=== PATIENT | male | born 1970 | race Caucasian/White ===

== ENCOUNTER 2022-07-22 09:46 | Emergency (ER) | payer BC ==
[2022-07-22 09:53] VITALS: BP 164/63; PULSE 75; RESP 18; TEMP 98
--- NOTE | 2022-07-22 10:12 | ED ---
Back Pain HPI - General Chief Complaint: Back Pain/Injury Stated Complaint: Back & hip pain Time Seen by Provider: 07/22/22 10:00 Source: patient, RN notes reviewed Limitations: physical limitation - History of Present Illness Initial Comments: Patient is a 51-year-old male presenting to the emergency room with severe right-sided back pain radiating into his hip and down to the groin. He reports the pain started , 3 days ago. 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 He did continue to work the next 2 days despite having pain which has continued to worsen. He reports pain range of motion impairment due to severe pain. He denies any weakness, numbness or tingling. He has taken ibuprofen without any response. He does note a history of chronic back pain/problems but typically he manages this well without any medication. He denies any trauma or known injury on the day symptoms began. He has no other significant past medical history. - Related Data Previous Rx's Medication Instructions Recorded HYDROcodone/APAP 5-325MG [[place] 1 tab PO Q4HR PRN 3 Days #18 tab 07/22/22 5-325] methylPREDNISolone Dose Pack 4 mg PO DIRECTED #21 tab 07/22/22 [Medrol Dose Pack] Allergies Allergy/AdvReac Type Severity Reaction Status Date / Time No Known Allergies Allergy Verified 07/22/22 09:53 Review of Systems ROS Statement: Those systems with pertinent positive or pertinent negative responses have been documented in the HPI. ROS Other: All systems not noted in ROS Statement are negative. Past Medical History Additional Past Medical History / Comment(s): chronic back pain, History of Any Multi-Drug Resistant Organisms: None Reported Past Surgical History: No Surgical Hx Reported Past Psychological History: No Psychological Hx Reported Smoking Status: Current every day smoker Past Alcohol Use History: Occasional Past Drug Use History: Marijuana General Exam Limitations: physical limitation General appearance: alert, in no apparent distress Head exam: Present: atraumatic, normocephalic, normal inspection Eye exam: Present: normal appearance, PERRL, EOMI. Absent: scleral icterus, conjunctival injection, periorbital swelling ENT exam: Present: normal exam, mucous membranes moist Neck exam: Present: normal inspection, full ROM Respiratory exam: Absent: respiratory distress, accessory muscle use Cardiovascular Exam: Present: regular rate GI/Abdominal exam: Absent: distended, tenderness Right Hip exam: Present: tenderness. Absent: full ROM (Limited by pain), swelling, abrasion, laceration, ecchymosis, deformity, crepitus, dislocation, erythema, external rotation, internal rotation, shortening, pelvic stability Neurovascular tendon exam: Present: no vascular compromise Gait: observed and limited by pain Back exam: Present: tenderness (Right mid lower back into buttocks generalized no point tenderness). Absent: vertebral tenderness Neurological exam: Present: alert, oriented X3, CN II-XII intact Psychiatric exam: Present: normal affect, normal mood Skin exam: Present: warm, dry, intact, normal color. Absent: rash Course Vital Signs 07/22/22 09:50 Temperature 98.0 F Pulse Rate 75 Respiratory 18 Rate Blood Pressure 164/63 O2 Sat by Pulse 100 Oximetry Medical Decision Making - Medical Decision Making Was pt. sent in by a medical professional or institution (, PA, [facility], urgent care, hospital, or usp...) When possible be specific @ -No Did you speak to anyone other than the patient for history (EMS, parent, family, police, friend...)? What history was obtained from this source @ -No Did you review nursing and triage notes (agree or disagree)? Why? @ -I reviewed and agree with nursing and triage notes Were old charts reviewed (outside hosp., previous admission, EMS record, old EKG, old radiological studies, urgent care reports/EKG's, usp records)? Report findings @ -No old charts were reviewed Differential Diagnosis (chest pain, altered mental status, abdominal pain women, abdominal pain men, vaginal bleeding, weakness, fever, dyspnea, syncope, headache, dizziness, GI bleed, back pain, seizure, CVA, palpatations, mental health, musculoskeletal)? @ -Differential Back Pain: Strain, zoster, cauda equina syndrome, epidural abscess, vertebral osteomyelitis, discitis, fracture, subluxation, disc herniation, DJD, spinal stenosis, dissection, AAA, pancreatitis, peptic ulcer disease, pyelonephritis, kidney stone, this is not meant to be an all-inclusive list. EKG interpreted by me (3pts min.). @ -None done X-rays interpreted by me (1pt min.). @ -X-ray right hip: Joint space well maintained no fracture or dislocation. X-ray lumbar spine degenerative disc disease no vertebral collapse or fracture. CT interpreted by me (1pt min.). @ -None done U/S interpreted by me (1pt. min.). @ -None done What testing was considered but not performed or refused? (CT, X-rays, U/S, labs)? Why? @ -None What meds were considered but not given or refused? Why? @ -None Did you discuss the management of the patient with other professionals (professionals i.e. , PA, [facility], lab, RT, psych nurse, director of social work, electroplater helper, teacher, campus police officer, case managers)? Give summary @ -No Was smoking cessation discussed for >3mins.? @ -No Was critical care preformed (if so, how long)? @ -No Were there social determinants of health that impacted care today? How? (Homelessness, low income, unemployed, alcoholism, drug addiction, transportation, low edu. Level, literacy, decrease access to med. care, [facility], rehab)? @ -No Was there de-escalation of care discussed even if they declined (Discuss DNR or withdrawal of care, Hospice)? DNR status @ -No What co-morbidities impacted this encounter? (DM, HTN, Smoking, COPD, CAD, Cancer, CVA, ARF, Chemo, Hep., AIDS, mental health diagnosis, sleep apnea, morbid obesity)? @ -None Was patient admitted / discharged? Hospital course, mention meds given and route, prescriptions, significant lab abnormalities, going to OR and other pertinent info. @ -51-year-old male presenting to the emergency room with severe right-sided back pain radiating into his hip and down to the groin. Symptoms consistent with sacroiliitis and chronic lower back pain flare however patient is concerned regarding injury as his hip is "popping". Will obtain x-rays of lumbar spine and right hip. Will give Toradol and Norflex for pain and monitor response. X-ray of right hip without any acute osseous pathology. X-ray of the lumbar spine demonstrates known degenerative disc disease no acute findings. Pain persists after Norflex and Toradol will give IM morphine. Pain continued after morphine but improved. Discussed options of admission for pain control versus home with [place] and Medrol Dosepak. Patient would like to be discharged home. Will give dose of Solu-Medrol now and advised patient to start Medrol Dosepak tomorrow morning. Advised no NSAIDs while taking steroids. Advised will prescribe medications and discharge home but with strict return parameters to the emergency room if symptoms worsen. Advised rest and ice useQuestions significant concerns answered. Will discharge home in stable condition on Medrol Dosepak along with [place] 3 day course to utilize as needed for pain for sacroiliitis. Undiagnosed new problem with uncertain prognosis? @ -No Drug Therapy requiring intensive monitoring for toxicity (Heparin, Nitro, Insulin, Cardizem)? @ -No Were any procedures done? @ -No Diagnosis/symptom? @ -Sacroiliitis Acute, or Chronic, or Acute on Chronic? @ -Acute Uncomplicated (without systemic symptoms) or Complicated (systemic symptoms)? @ -Uncomplicated Side effects of treatment? @ -No Exacerbation, Progression, or Severe Exacerbation? @ -No Poses a threat to life or bodily function? How? (Chest pain, [place], PR, pneumonia, PE, COPD, DKA, ARF, appy, cholecystitis, CVA, Diverticulitis, Homicidal, Suicidal, threat to staff... and all critical care pts) @ -No Case discussed with Dr. Quispe. Disposition Clinical Impression: Sacroiliitis Disposition: HOME SELF-CARE Condition: Stable Instructions (If sedation given, give patient instructions): Sacroiliitis (ED) Additional Instructions: Complete course of steroid Dosepak as prescribed. Use [place] for pain as needed. Range of motion as tolerated encouraged. Applications of heat or ice may help reduce pain. Do not take other NSAIDs while on steroid Dosepak. May resume NSAIDs for pain as needed after completion of Medrol Dosepak. Please follow-up with your primary care provider. Please return to the Emergency Department if symptoms worsen or any other concerns. Prescriptions: methylPREDNISolone Dose Pack [Medrol Dose Pack] 4 mg PO DIRECTED #21 tab HYDROcodone/APAP 5-325MG [[place] 5-325] 1 tab PO Q4HR PRN 3 Days #18 tab PRN Reason: Pain Is patient prescribed a controlled substance at d/c from ED?: Yes When asked, does pt state using other controlled substances?: Yes If prescribed controlled substance>3 days was MAPS reviewed?: Prescribed <3 Days If opioid is for acute pain is fill amount 7 days or less?: Yes Referrals: Selvin Atkins MD [Primary Care Provider] - 1-2 days Time of Disposition: 12:41
[2022-07-22] MEDS ORDERED: KETOROLAC 15 MG/ML 1 ML VIAL IVP STA (10:37)
[2022-07-22] MEDS ORDERED: ORPHENADRINE 30 MG/ML 2 ML VIAL IM STA (10:37)
--- NOTE | 2022-07-22 11:09 | XR ---
EXAMINATION TYPE: XR lumbar spine 3V, XR Hip Complete 2 views RT DATE OF EXAM: 07/22/2022 Comparison: None HISTORY: 51-year-old male with pain Findings: Lumbar spine: 5 lumbar type vertebral bodies. Mild multilevel degenerative disc disease. Facet arthropathy lower gabino mbar spine. Somewhat short appearance to the pedicles of the lower lumbar spine may reflect a compone nt of congenital spinal canal stenosis. Vertebral body heights are preserved and alignment is maintai jimbo. Right hip: Joint space is relatively maintained. No acute fracture, subluxation, or dislocation. Impression: 1. Lumbar spine: Mild multilevel degenerative disc disease. Facet arthropathy lower lumbar spine. Pos sible component of congenital spinal canal stenosis lower lumbar spine. No vertebral compression junior apse or malalignment. 2. Right hip: No acute osseous abnormality seen.
[2022-07-22] MEDS ORDERED: MORPHINE SULFATE 4 MG/ML SYRINGE IM STA (11:28)
[2022-07-22] MEDS ORDERED: methylPREDNISolone SOD SUCCI 125 MG/2 ML VIAL IM ONE (12:25)
== END 2022-07-22 12:59 | disposition home or self-care (01) ==
LOC: EC 09:46
DX: M46.1 Sacroiliitis, not elsewhere classified (principal); F17.200 Nicotine dependence, unspecified, uncomplicated; F12.90 Cannabis use, unspecified, uncomplicated
CPT/HCPCS: 72100; 73502; 99283; 96374; 96372 ×3; J2270; J2360; J2930; J1885

== ENCOUNTER 2022-07-25 08:09 | Observation (INO) | payer BC ==
[2022-07-25] MEDS ORDERED: HYDROmorphone 1 MG/ML 1 ML SYRINGE IVP STA (08:49)
[2022-07-25] MEDS ORDERED: ORPHENADRINE 30 MG/ML 2 ML VIAL IVP STA (08:49)
[2022-07-25] MEDS ORDERED: KETOROLAC 15 MG/ML 1 ML VIAL IVP STA (09:11)
--- NOTE | 2022-07-25 09:19 | ED ---
Back Pain HPI - General Source: patient, RN notes reviewed Limitations: no limitations - History of Present Illness MD Complaint: back pain Onset/Timin -: days(s) Similar Symptoms Previously: Yes <Kathy Hollingsworth - Last Filed: 07/25/22 14:56> <Jasmin Frazier Dionne - Last Filed: 07/29/22 00:28> - General Chief Complaint: Back Pain/Injury Stated Complaint: Back Pain Time Seen by Provider: 07/25/22 08:11 - History of Present Illness Initial Comments: This is a 51-year-old male who presents to the emergency department for lower back pain. Patient was evaluated here 3 days ago for the same complaint. 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 He has struggled with chronic back pain before, however it has never been this severe and always resolves with OTC Ibuprofen and Tylenol and other conservative measures. He was given prescriptions for a Medrol Dosepak and [place], which he states are not helping at all. Also states that the pain medications he received when he was here 3 days ago were not helpful, which included Solu- Medrol, Morphine, Toradol, and Norflex. The pain is in the right side of the back with radiation down the right leg and into the hip. Also reports lower abdominal pain and pain in the testicles. Denies any history of similar symptoms in the past. Denies any loss of bowel/bladder control or saddle anesthesia. However, he has been constipated over the last 3-4 days. Denies any urinary symptoms. Denies any fevers, chills, sore throat, cough, dyspnea, chest pain, palpitations, nausea, vomiting, diarrhea, or headaches. (Kathy Hollingsworth) - Related Data Previous Rx's Medication Instructions Recorded Cyclobenzaprine [Flexeril] 5 mg PO TID PRN #15 tab 07/28/22 Diclofenac Sodium Gel [Voltaren 4 gm TOPICAL QID gm 07/28/22 Gel] Omeprazole [PriLOSEC] 20 mg PO AC-BRKFST #15 cap 07/28/22 oxyCODONE-APAP 7.5-325MG [Percocet 1 each PO Q4HR PRN 4 Days #16 tab 07/28/22 7.5-325 mg] Allergies Allergy/AdvReac Type Severity Reaction Status Date / Time No Known Allergies Allergy Verified 07/25/22 12:35 Review of Systems ROS Other: All systems not noted in ROS Statement are negative. <Kathy Hollingsworth - Last Filed: 07/25/22 14:56> ROS Other: All systems not noted in ROS Statement are negative. <FreddieJasmin Dionne - Last Filed: 07/29/22 00:28> ROS Statement: Those systems with pertinent positive or pertinent negative responses have been documented in the HPI. Past Medical History Additional Past Medical History / Comment(s): chronic back pain, History of Any Multi-Drug Resistant Organisms: None Reported Past Surgical History: No Surgical Hx Reported Past Psychological History: No Psychological Hx Reported Smoking Status: Current every day smoker Past Alcohol Use History: Occasional Past Drug Use History: Marijuana <Kathy Hollingsworth - Last Filed: 07/25/22 14:56> General Exam Limitations: no limitations General appearance: alert, in distress Head exam: Present: atraumatic, normocephalic, normal inspection Respiratory exam: Present: normal lung sounds bilaterally. Absent: respiratory distress, wheezes, rales, rhonchi, stridor Cardiovascular Exam: Present: regular rate, normal rhythm, normal heart sounds. Absent: systolic murmur, diastolic murmur, rubs, gallop, clicks GI/Abdominal exam: Present: soft, tenderness (Lower abdominal). Absent: distended Back exam: Present: normal inspection, tenderness (Right lower back) Neurological exam: Present: alert, oriented X3, CN II-XII intact Psychiatric exam: Present: normal affect, normal mood Skin exam: Present: warm, dry, intact, normal color. Absent: rash <Kathy Hollingsworth - Last Filed: 07/25/22 14:56> Course Vital Signs 07/25/22 07/25/22 07/25/22 08:11 09:00 13:00 Temperature 97.3 F L 98 F Pulse Rate 69 66 67 Pulse Rate [ Right Supine] Respiratory 18 18 18 Rate Blood Pressure 145/83 125/84 154/99 Blood Pressure [Left Arm Supine] O2 Sat by Pulse 98 98 Oximetry 07/25/22 07/25/22 07/25/22 18:37 20:46 20:55 Temperature 97.8 F 97.8 F Pulse Rate 69 Pulse Rate [ 70 Right Supine] Respiratory 18 18 18 Rate Blood Pressure 147/95 Blood Pressure 138/92 [Left Arm Supine] O2 Sat by Pulse 95 96 Oximetry Medical Decision Making - Lab Data Result diagrams: 07/25/22 09:08 07/25/22 09:08 - Radiology Data Radiology results: report reviewed, image reviewed <Kathy Hollingsworth - Last Filed: 07/25/22 14:56> - Lab Data Result diagrams: 07/25/22 09:08 07/28/22 14:34 <Venus Frazierah Dionne - Last Filed: 07/29/22 00:28> - Medical Decision Making This is a 51-year-old male who presents to the emergency department for back pain and abdominal pain. Was pt. sent in by a medical professional or institution? @ -No Did you speak to anyone other than the patient for history? @ -No Did you review nursing and triage notes? @ -Yes, and I agree, it is accurate with regards to the patient's symptoms. Were old charts reviewed? @ -Yes, x-rays of the lumbar spine and right hip from 3 days ago revealing no acute findings. Differential Diagnosis? @ -Differential Back Pain: Strain, zoster, cauda equina syndrome, epidural abscess, vertebral osteomyelitis, discitis, fracture, subluxation, disc herniation, DJD, spinal stenosis, dissection, AAA, pancreatitis, peptic ulcer disease, pyelonephritis, kidney stone, this is not meant to be an all-inclusive list. -Differential Abdominal Pain Men: Appendicitis, cholecystitis, diverticulosis, ischemic bowel, pancreatitis, hepatitis, UTI, gastroenteritis, AAA, incarcerated hernia, bowel obstruction, constipation, inflammatory bowel, hepatitis, peptic ulcer disease, splenic infarction, perforated viscus, testicular torsion, this is not meant to be an all-inclusive list EKG interpreted by me (3pts min.)? @ -Not obtained X-rays interpreted by me (1pt min.)? @ -Not obtained CT interpreted by me (1pt min.)? @ -CT scan of the abdomen and pelvis obtained. My interpretation identifies no evidence of free air or ureteral calculus. U/S interpreted by me (1pt. min.)? @ -Not obtained What testing was considered but not performed? (CT, X-rays, U/S, labs)? Why? @ -None What meds were considered but not given? Why? @ -None Did you discuss the management of the patient with other professionals? @ -Yes, Dr. Banerjee, who accepts the patient for admission. Did you reconcile home meds? @ -No Was smoking cessation discussed for >3mins.? @ -No Was critical care preformed (if so, how long)? @ -No Were there social determinants of health that impacted care today? How? (Homelessness, low income, unemployed, alcoholism, drug addiction, trans portation, low edu. Level, literacy, decrease access to med. care, detention, rehab)? @ -No Was there de-escalation of care discussed even if they declined? (Discuss DNR or withdrawal of care, Hospice)? @ -No What co-morbidities impacted this encounter? (DM, HTN, Smoking, COPD, CAD, Cancer, CVA, Hep., AIDS, mental health diagnosis, sleep apnea, morbid obesity)? @ -Chronic back pain Was patient admitted / discharged? @ -Admitted. Patient was curled up on the stretcher in extreme pain on initial examination. Given the persistence of his symptoms and failed outpatient pain management, further workup including blood work and computed tomography scan of the lumbar spine and abdomen and pelvis was subsequently obtained. Notable findings include severe neural foraminal stenosis with possible abutment at the right L4 nerve root. Additionally, computed tomography scan of the abdomen and pelvis notes gastric thickening and mucosal lesions/neoplasm cannot be excluded. There is also thickening and narrowing at the mid sigmoid colon and a neoplasm cannot be ruled out here either. Direct visualization was recommended. Given the patient's intractable pain with these findings, patient admitted to medicine for intractable back pain. Consult placed for Dr. Pradhan, orthopedics and Dr. Saxena, gastroenterology. Undiagnosed new problem with uncertain prognosis? @ -None Drug Therapy requiring intensive monitoring for toxicity (Heparin, Nitro, Insulin, Cardizem)? @ -None Were any procedures done? @ -None Diagnosis/symptom? @ -Intractable back pain, neural foraminal stenosis Acute, or Chronic, or Acute on Chronic? @ -Acute Uncomplicated (without systemic symptoms) or Complicated (systemic symptoms)? @ -Uncomplicated Side effects of treatment? @ -None Exacerbation, Progression, or Severe Exacerbation] @ -Not applicable Poses a threat to life or bodily function? @ -Yes, the pain is having a large impact on his ability to function. This case was discussed in detail with the attending ED physician, Dr. Farzier. Presentation, findings, and treatment plan discussed in detail as well. (Kathy Hollingsworth) - Lab Data Lab Results 07/25/22 07/25/22 07/25/22 Range/Units 09:08 09:08 09:08 WBC 10.0 (3.8-10.6) k/uL RBC 6.16 H (4.30-5.90) m/uL Hgb 18.7 H (13.0-17.5) gm/dL Hct 53.8 H (39.0-53.0) % MCV 87.3 (80.0-100.0) fL MCH 30.4 (25.0-35.0) pg MCHC 34.9 (31.0-37.0) g/dL RDW 12.8 (11.5-15.5) % Plt Count 232 (150-450) k/uL MPV 8.5 Neutrophils % 73 % Lymphocytes % 21 % Monocytes % 4 % Eosinophils % 1 % Basophils % 0 % Neutrophils # 7.3 (1.3-7.7) k/uL Lymphocytes # 2.1 (1.0-4.8) k/uL Monocytes # 0.4 (0-1.0) k/uL Eosinophils # 0.1 (0-0.7) k/uL Basophils # 0.0 (0-0.2) k/uL Sodium 137 (137-145) mmol/L Potassium 4.3 (3.5-5.1) mmol/L Chloride 106 (98-107) mmol/L Carbon Dioxide 20 L (22-30) mmol/L Anion Gap 11 mmol/L BUN 18 (9-20) mg/dL Creatinine 0.74 (0.66-1.25) mg/dL Est GFR (CKD-EPI)AfAm >90 (>60 ml/min/1.73 sqM) Est GFR (CKD-EPI)NonAf >90 (>60 ml/min/1.73 sqM) Glucose 104 H (74-99) mg/dL Plasma Lactic Acid Wagner (0.7-2.0) mmol/L Calcium 9.7 (8.4-10.2) mg/dL Total Bilirubin 1.9 H (0.2-1.3) mg/dL AST 27 (17-59) U/L ALT 25 (4-49) U/L Alkaline Phosphatase 67 (38-126) U/L Troponin I (0.000-0.034) ng/mL C-Reactive Protein <0.5 (<1.0) mg/dL Total Protein 8.1 (6.3-8.2) g/dL Albumin 4.7 (3.5-5.0) g/dL Urine Color Yellow Urine Appearance Clear (Clear) Urine pH 6.5 (5.0-8.0) Ur Specific [place] 1.046 H (1.001-1.035) Urine Protein Trace H (Negative) Urine Glucose (UA) Negative (Negative) Urine Ketones 1+ H (Negative) Urine Blood Negative (Negative) Urine Nitrite Negative (Negative) Urine Bilirubin Negative (Negative) Urine Urobilinogen <2.0 (<2.0) mg/dL Ur Leukocyte Esterase Negative (Negative) 07/25/22 07/25/22 Range/Units 09:08 09:08 WBC (3.8-10.6) k/uL RBC (4.30-5.90) m/uL Hgb (13.0-17.5) gm/dL Hct (39.0-53.0) % MCV (80.0-100.0) fL MCH (25.0-35.0) pg MCHC (31.0-37.0) g/dL RDW (11.5-15.5) % Plt Count (150-450) k/uL MPV Neutrophils % % Lymphocytes % % Monocytes % % Eosinophils % % Basophils % % Neutrophils # (1.3-7.7) k/uL Lymphocytes # (1.0-4.8) k/uL Monocytes # (0-1.0) k/uL Eosinophils # (0-0.7) k/uL Basophils # (0-0.2) k/uL Sodium (137-145) mmol/L Potassium (3.5-5.1) mmol/L Chloride (98-107) mmol/L Carbon Dioxide (22-30) mmol/L Anion Gap mmol/L BUN (9-20) mg/dL Creatinine (0.66-1.25) mg/dL Est GFR (CKD-EPI)AfAm (>60 ml/min/1.73 sqM) Est GFR (CKD-EPI)NonAf (>60 ml/min/1.73 sqM) Glucose (74-99) mg/dL Plasma Lactic Acid Wagner 1.5 (0.7-2.0) mmol/L Calcium (8.4-10.2) mg/dL Total Bilirubin (0.2-1.3) mg/dL AST (17-59) U/L ALT (4-49) U/L Alkaline Phosphatase (38-126) U/L Troponin I <0.012 (0.000-0.034) ng/mL C-Reactive Protein (<1.0) mg/dL Total Protein (6.3-8.2) g/dL Albumin (3.5-5.0) g/dL Urine Color Urine Appearance (Clear) Urine pH (5.0-8.0) Ur Specific [place] (1.001-1.035) Urine Protein (Negative) Urine Glucose (UA) (Negative) Urine Ketones (Negative) Urine Blood (Negative) Urine Nitrite (Negative) Urine Bilirubin (Negative) Urine Urobilinogen (<2.0) mg/dL Ur Leukocyte Esterase (Negative) Disposition <Kathy Hollingsworth - Last Filed: 07/25/22 14:56> <Jasmin Frazier - Last Filed: 07/29/22 00:28> Clinical Impression: Foraminal stenosis of lumbar region, Gastric wall thickening, Sigmoid thickening Disposition: ADMITTED IP TO THIS HOSP
[2022-07-25 09:24] LABS: Basophils % (A) 0 %; Eosinophils # (A) 0.1 k/uL (0-0.7); Eosinophils % (A) 1 %; HCT 53.8 % (39.0-53.0); HGB 18.7 gm/dL (13.0-17.5); Lymphocytes # (A) 2.1 k/uL (1.0-4.8); Lymphocytes % (A) 21 %; MCH 30.4 pg (25.0-35.0); MCHC 34.9 g/dL (31.0-37.0); MCV 87.3 fL (80.0-100.0); Mean Platelet Volume 8.5; Monocytes # (A) 0.4 k/uL (0-1.0); Monocytes % (A) 4 %; Neutrophils # (A) 7.3 k/uL (1.3-7.7); Neutrophils % (A) 73 %; Platelet Count 232 k/uL (150-450); RBC 6.16 m/uL (4.30-5.90); RDW 12.8 % (11.5-15.5)
[2022-07-25 09:36] LABS: ALT 25 U/L (4-49); AST 27 U/L (17-59); African American GFR (CKD) >90 (>60 ml/min/1.73 sqM); Albumin 4.7 g/dL (3.5-5.0); Alkaline Phosphatase 67 U/L (38-126); Anion Gap 11 mmol/L; Blood Urea Nitrogen 18 mg/dL (9-20); Calcium 9.7 mg/dL (8.4-10.2); Carbon Dioxide 20 mmol/L (22-30); Chloride 106 mmol/L (98-107); Glucose 104 mg/dL (74-99); Non-African American GFR(CKD) >90 (>60 ml/min/1.73 sqM); Sodium 137 mmol/L (137-145); Total Bilirubin 1.9 mg/dL (0.2-1.3); Total Protein 8.1 g/dL (6.3-8.2)
[2022-07-25 09:42] LABS: Potassium 4.3 mmol/L (3.5-5.1)
--- NOTE | 2022-07-25 10:00 | CT ---
EXAMINATION TYPE: CT abdomen pelvis w con DATE OF EXAM: 07/25/2022 COMPARISON: NONE HISTORY: 51-year-old male Right sided abdominal pain and back pain TECHNIQUE: Contiguous axial scanning of the abdomen and pelvis following administration of 100 ml Iso min 300 IV contrast. Delayed images through the kidneys and coronal/sagittal reconstructions perform ed. CT DLP: 1605 mGycm Automated exposure control for dose reduction was used. FINDINGS: LUNG BASES: No significant abnormality is appreciated. LIVER/GB: No significant abnormality is appreciated. PANCREAS: No significant abnormality is seen. SPLEEN: Hilar splenule. No significant abnormality is seen. ADRENALS: No significant abnormality is seen. KIDNEYS: 3.6 cm cyst lower pole right kidney. BOWEL: Moderate gastric fold thickening along the fundus and body. Some possible more focal mural bas ed thickening measuring 1.9 cm at the posterior gastric antrum, axial image 17 and coronal image 23. Some prominent fluid-filled small bowel loops in the lower abdomen. No dilated small bowel, free flui d, or free air. There is a 2.7 cm long segment of moderate annular thickening and narrowing along the mid sigmoid col on, refer to axial image 53 and coronal image 36. Small to moderate overall stool burden. Normal appe ndix. No pericolonic inflammatory change. LYMPH NODES: No significant abnormality is seen. OTHER: Tiny fatty umbilical hernia. PELVIS: Prostate gland enlargement 5.0 cm wide. Punctate calcifications are present. Possible subtle 7 mm focus of enhancement within the left paramedian prostate gland, axial image 75. No abnormal flui d collection in the pelvis or pelvic lymphadenopathy. BONES: No significant abnormality is seen. Moderate degenerative disc disease and facet arthropathy L5-S1. IMPRESSION: 1. MODERATE GASTRIC FOLD THICKENING ALONG THE FUNDUS AND BODY. FINDINGS MAY REFLECT GASTRITIS. 2. HOWEVER, THERE IS MORE FOCAL, MURAL BASED THICKENING MEASURING 1.9 CM AT THE POSTERIOR GASTRIC ANT RUM. A PROMINENT FOLD VERSUS AN ULCER MOUND OR MUCOSAL LESION/NEOPLASM ARE ALL DIFFERENTIAL CONSIDERA TIONS. RECOMMEND DIRECT VISUALIZATION TO EXCLUDE THE POSSIBILITY OF NEOPLASM. 3. IN ADDITION, THERE IS A 2.7 CM LONG SEGMENT OF MODERATE ANNULAR THICKENING AND NARROWING AT THE MS DSIGMOID COLON, CORONAL IMAGE 36. POSSIBLE FOCAL PERISTALSIS. BASED ON CLINICAL SUSPICION OF UNDERLYI NG NEOPLASM, EITHER SHORT INTERVAL FOLLOW-UP CT TO REASSESS THIS AREA PRESSES DIRECT VISUALIZATION. 4. SOME PROMINENT FLUID-FILLED SMALL BOWEL LOOPS IN THE LOWER ABDOMEN COULD REPRESENT A MILD REGIONAL ILEUS OR ENTERITIS. 5. PROSTATOMEGALY OF 5.0 CM WIDE WITH SOME HETEROGENEOUS ENHANCEMENT. SMALL FOCUS OF ENHANCEMENT WITH IN THE LEFT PARAMEDIAN PROSTATE GLAND. CORRELATE WITH PSA VALUES.
--- NOTE | 2022-07-25 10:04 | CT ---
EXAMINATION TYPE: CT lumbar spine w con DATE OF EXAM: 07/25/2022 COMPARISON: None HISTORY: 51-year-old male Right sided abdominal pain and back pain TECHNIQUE: Contiguous axial scanning of the lumbar spine performed with IV Contrast, patient injected with 100-from abd pelvis injection mL of Isovue 300. Coronal/sagittal reconstructions performed. CT DLP: included in abdomen/pelvic scan Automated exposure control for dose reduction was used. FINDINGS: There is mild congenital spinal canal narrowing mid lumbar spine with AP canal dimension of 1.1 cm. Mild multilevel degenerative disc disease with disc bulging at multiple levels. More moderate degener ative disc disease with disc space narrowing L5-S1. Facet arthropathy lower lumbar spine. Vertebral body heights are preserved and alignment is maintained. Posterior disc bulge contributes to overall mild to moderate spinal canal stenosis at L3-L4 and mild at L4-L5. No high-grade canal compromise seen by CT. On the left, changes result in moderate neural foraminal stenosis at L3-L4. Mild to moderate at L2-L3 , L4-L5, L5-S1. On the right, changes result in moderate to severe neuroforaminal stenosis at L4-L5 with possible abu tment of the exiting right L4 nerve root. Moderate neural foraminal stenosis at L3-L4. Mild at multip le additional levels. IMPRESSION: 1. MILD MULTILEVEL DEGENERATIVE DISC DISEASE, MORE MODERATE AT L5-S1. ADDITIONAL FACET ARTHROPATHY DE D TO LOWER LUMBAR SPINE. 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 2. OVERALL MILD TO MODERATE SPINAL CANAL STENOSIS AT L3-L4 AND MILD AT L4-L5. NO HIGH-GRADE CANAL COM PROMISE SEEN BY CT. 3. VARIABLE NEUROFORAMINAL STENOSES OUTLINED ABOVE. ON THE RIGHT, THERE APPEARS TO BE A MODERATE T O SEVERE NEUROFORAMINAL STENOSIS AT L4-L5 WITH POSSIBLE ABUTMENT OF THE EXITING RIGHT L4 NERVE ROOT.
[2022-07-25 10:07] LABS: C Reactive Protein <0.5 mg/dL (<1.0)
[2022-07-25] MEDS ORDERED: IBUPROFEN 400 MG TAB PO PRN (11:09)
[2022-07-25] MEDS ORDERED: ONDANSETRON 4 MG/2 ML VIAL IVP PRN (11:09)
[2022-07-25] MEDS ORDERED: KETOROLAC 15 MG/ML 1 ML VIAL IVP PRN (11:09)
[2022-07-25] MEDS ORDERED: NALOXONE 0.4 MG/ML 1 ML VIAL IV PRN (11:09)
[2022-07-25] MEDS ORDERED: ACETAMINOPHEN TAB 325 MG TAB PO PRN (11:09)
--- NOTE | 2022-07-25 12:04 | P.HPIM ---
History of Present Illness 51 year Male came complaints of severe low back pain patient was seen in ER patient was subsequently sent home on [id number] ibuprofen and Tylenol. Patient any to have this pain. Patient denied any recent trauma. Patient was given salmeterol as well. Patient came back again with severe back pain, lack of bowel movements for about 3 days, severe epigastric abdominal pain along with nausea. Patient had a CT of the abdomen and pelvis along with the CT of the lumbar spine which showed severe gastritis with possible mass in the stomach along with severe degenerative to lower lumbar spine disease. Patient was Complaining of tingling numbness in both feet. Patient denied any weakness. Patient is being admitted for severe gastritis and severe back pain and pain management. REVIEW OF SYSTEMS: CONSTITUTIONAL: No fever, no malaise, no fatigue. HEENT: No recent visual problems or hearing problems. Denied any sore throat. CARDIOVASCULAR: No chest pain, orthopnea, PND, no palpitations, no syncope. PULMONARY: No shortness of breath, no cough, no hemoptysis. GASTROINTESTINAL: No diarrhea, no nausea, no vomiting, no abdominal pain. NEUROLOGICAL: No headaches, no weakness, no numbness. HEMATOLOGICAL: Denies any bleeding or petechiae. GENITOURINARY: Denies any burning micturition, frequency, or urgency. MUSCULOSKELETAL/RHEUMATOLOGICAL: Severe low back pain ENDOCRINE: Denies any polyuria or polydipsia. The rest of the 14-point review of systems is negative. PHYSICAL EXAMINATION: GENERAL: The patient is alert and oriented x3, not in any acute distress. Well developed, well nourished. HEENT: Pupils are round and equally reacting to light. EOMI. No scleral icterus. No conjunctival pallor. Normocephalic, atraumatic. No pharyngeal erythema. No thyromegaly. CARDIOVASCULAR: S1 and S2 present. No murmurs, rubs, or gallops. PULMONARY: Chest is clear to auscultation, no wheezing or crackles. ABDOMEN: Soft, nontender, nondistended, normoactive bowel sounds. No palpable organomegaly. MUSCULOSKELETAL: Deferred due to severe back pain EXTREMITIES: No cyanosis, clubbing, or pedal edema. NEUROLOGICAL: Gross neurological examination did not reveal any focal deficits. SKIN: No rashes. Assessment and plan -Epigastric abdominal pain secondary to severe gastritis due to nonsteroidal anti-inflammatory pain medications and steroids that patient was taking, patient is started on Protonix , gastric body was consulted because of possible masslike lesion in the stomach on the CT. -Severe low back pain: Patient was started on appears her pain along with Lidoderm patch and the Percocet for baseline pain control , Flexeril for spasm. reception specialist was consulted and pain management will be consulted for possible epidural steroid injection DVT prophylaxis: Lovenox Past Medical History Additional Past Medical History / Comment(s): chronic back pain, History of Any Multi-Drug Resistant Organisms: None Reported Past Surgical History: No Surgical Hx Reported Past Psychological History: No Psychological Hx Reported Smoking Status: Current every day smoker Past Alcohol Use History: Occasional Past Drug Use History: Marijuana Medications and Allergies Home Medications Medication Instructions Recorded Confirmed Type HYDROcodone/APAP 5-325MG [[place] 1 tab PO Q4HR PRN 3 Days #18 tab 07/22/22 Rx 5-325] methylPREDNISolone Dose Pack 4 mg PO DIRECTED #21 tab 07/22/22 Rx [Medrol Dose Pack] Allergies Allergy/AdvReac Type Severity Reaction Status Date / Time No Known Allergies Allergy Verified 07/25/22 08:15 Physical Exam Vitals: Vital Signs Temp Pulse Resp BP Pulse Ox 07/25/22 09:00 66 18 125/84 07/25/22 08:11 97.3 F L 69 18 145/83 98 Intake and Output 07/24/22 07/25/22 07/25/22 22:59 06:59 14:59 Other: Weight 83.915 kg Results CBC & Chem 7: 07/25/22 09:08 07/25/22 09:08 Labs: Abnormal Lab Results - Last 24 Hours (Table) 07/25/22 07/25/22 Range/Units 09:08 09:08 RBC 6.16 H (4.30-5.90) m/uL Hgb 18.7 H (13.0-17.5) gm/dL Hct 53.8 H (39.0-53.0) % Carbon Dioxide 20 L (22-30) mmol/L Glucose 104 H (74-99) mg/dL Total Bilirubin 1.9 H (0.2-1.3) mg/dL
[2022-07-25 12:08] LABS: Appearance,Urine Clear (Clear); Bilirubin,Urine Negative (Negative); Blood,Urine Negative (Negative); Color,Urine Yellow; Glucose,Urine (UA) Negative (Negative); Ketones,Urine 1+ (Negative); Leukocyte Esterase,Urine Negative (Negative); Nitrite,Urine Negative (Negative); PH, Urine 6.5 (5.0-8.0); Protein,Urine Trace (Negative); Urobilinogen,Urine <2.0 mg/dL (<2.0)
[2022-07-25 12:11] LABS: Specific Gravity,Urine 1.046 (1.001-1.035)
[2022-07-25] MEDS: PANTOPRAZOLE 40 MG/10 ML VIAL IVP SCH ×2 (12:11→20:39)
[2022-07-25] MEDS: HYDROmorphone 0.5 MG/0.5 ML SYRINGE IVP PRN ×3 (16:50→23:40)
[2022-07-25] MEDS: CYCLOBENZAPRINE 5 MG TAB PO PRN (20:40)
[2022-07-26] MEDS: HYDROmorphone 1 MG/ML 1 ML SYRINGE IVP PRN ×6 (01:32→20:11)
[2022-07-26] MEDS: HYDROmorphone 0.5 MG/0.5 ML SYRINGE IVP PRN ×2 (03:17→06:12)
[2022-07-26] MEDS: oxyCODONE-APAP 7.5-325MG 1 EACH TAB PO PRN ×2 (03:22→14:35)
[2022-07-26] MEDS: CYCLOBENZAPRINE 5 MG TAB PO PRN (06:12)
[2022-07-26] MEDS ORDERED: ENOXAPARIN 40 MG/0.4 ML SYRINGE SQ SCH (09:00)
[2022-07-26] MEDS ORDERED: PEG 3350 (236 GM/BTL) + LYTES 4,000 ML BOTTLE PO ONE (12:15)
[2022-07-26] MEDS: PANTOPRAZOLE 40 MG/10 ML VIAL IVP SCH ×2 (12:43→20:11)
--- NOTE | 2022-07-26 13:31 | P.CNOR ---
History of Present Illness - [facility] Consult date: 07/26/22 Requesting physician: Kathy Hollingsworth Consult reason: low back pain, other (Right lower extremity radiculopathy) History of present illness: Patient is a very pleasant 51-year-old male who is seen and examined bedside for further evaluation of his lumbar spine. Patient states he was using a sledgehammer last 07/18/2022 without significant difficulty. Over the next couple days his symptoms began to progressively worsen. He states his right sided low back pain and spasm with pain radiating into his right groin, down the right anterior thigh, and down the right anterior cosby. His pain has been debilitating. His pain has been severe since 07/21/2022. He presents to the emergency department for further evaluation and was admitted under observation status. During his evaluation CT imaging has been performed of his lumbar spine which shows some degenerative change. He denies any lower extremity weakness bilaterally. Denies any left lower extremity radiculopathy. He is also stressing significant abdominal pain that continues to be present. Vernon herrera has not had a bowel movement in 5 days. He is passing gas. He has been seen by gastroenterology today. We are planning for a scope. He has had CT imaging of the abdomen and pelvis which showed severe gastritis with some concern for possible neoplasm. He is currently undergoing further evaluation. Consultation is also been placed with pain management. He has not yet been seen and examined by pain management. He would be willing to work to further treatment with pain management. Patient is admitted to medicine. He is a current every day smoker. He does not report any other medical conditions. Past Medical History Additional Past Medical History / Comment(s): chronic back pain, History of Any Multi-Drug Resistant Organisms: None Reported Past Surgical History: No Surgical Hx Reported Past Psychological History: No Psychological Hx Reported Smoking Status: Current every day smoker Past Alcohol Use History: Occasional Past Drug Use History: Marijuana - Past Family History Mother Family Medical History: Congestive Heart Failure (CHF), Coronary Artery Disease (CAD) Medications and Allergies Allergies Allergy/AdvReac Type Severity Reaction Status Date / Time No Known Allergies Allergy Verified 07/25/22 12:35 Physical Examination Osteopathic Statement: *. No significant issues noted on an osteopathic structural exam other than those noted in the History and Physical/Consult. Physical exam: Patient is awake, alert, and oriented 3 Vital signs stable Good chest excursion with deep inspiration and expiration Abdomen soft nontender Examination of lumbar spine reveals skin is intact with no abrasions, lacerations, or bruises; no erythema, purulence or signs of infection Significant spasm over the right lumbar paraspinal muscles Dorsiflexion, plantarflexion, and extensor hallucis longus positive sustained bilaterally Patient is able to perform active range of motion independently the bilateral lo wer extremities without significant difficulty Patient does report some increased right lower extremity leg pain with active range of motion Lower extremity strength 5/5 bilaterally Patellar reflex 2+ bilaterally and Achilles reflexes 2+ bilaterally No lower extremity hyperreflexia bilaterally Straight leg test negative bilateral lower extremities Negative Lasegue's test bilaterally No signs or symptoms of DVT; no calf pain No pain with internal and external rotation of the hips bilaterally Neurovascularly intact Results Pertinent studies: CT of the lumbar spine taken on 07/25/2022: Mild congenital spinal canal narrowing; no evidence of vertebral body compression fracture; L2-3 mild to moderate left neural foraminal stenosis; L3-4 mild to moderate central spinal canal stenosis with moderate left neural foraminal stenosis; L4-5 mild spinal canal stenosis with mild to moderate left neural foraminal stenosis; L5-S1 degenerative disc disease with mild to moderate left neural foraminal stenosis cervical no spondylolisthesis - Labs Labs: H & H 07/25/22 Range/Units 09:08 Hgb 18.7 H (13.0-17.5) gm/dL Hct 53.8 H (39.0-53.0) % Result Diagrams: 07/25/22 09:08 07/25/22 09:08 Assessment and Plan Assessment: Assessment: Acute intractable low back pain Right lumbar paravertebral spasm on the right Right lower extremity radiculopathy L3-4 moderate central canal stenosis L4-5 mild spinal canal stenosis L5-S1 degenerative disc disease Multilevel lumbar foraminal stenosis Severe gastritis Abdominal pain Possible gastric neoplasm Current every day smoker (1) Acute low back pain Current Visit: Yes Status: Acute Code(s): M54.50 - LOW BACK PAIN, UNSPEC IFIED SNOMED Code(s): 017571243 (2) Lumbar back pain with radiculopathy affecting right lower extremity Current Visit: Yes Status: Acute Code(s): M54.16 - RADICULOPATHY, LUMBAR REGION SNOMED Code(s): 253975153 (3) DDD (degenerative disc disease), lumbosacral Current Visit: Yes Status: Acute Code(s): M51.37 - OTHER INTERVERTEBRAL DISC DEGENERATION, LUMBOSACRAL REGION SNOMED Code(s): 71733003 (4) Lumbar stenosis Current Visit: Yes Status: Acute Code(s): M48.061 - SPINAL STENOSIS, LUMBAR REGION WITHOUT NEUROGENIC KIM SNOMED Code(s): 35807517 (5) Lumbar paraspinal muscle spasm Current Visit: Yes Status: Acute Code(s): M62.830 - MUSCLE SPASM OF BACK SNOMED Code(s): 23615765489612636 (6) Abdominal pain Current Visit: Yes Status: Acute Code(s): R10.9 - UNSPECIFIED ABDOMINAL PAIN SNOMED Code(s): 12457758 (7) Gastritis Current Visit: Yes Status: Acute Code(s): K29.70 - GASTRITIS, UNSPECIFIED, WITHOUT BLEEDING SNOMED Code(s): 5853683 (8) Foraminal stenosis of lumbar region Current Visit: Yes Status: Acute Code(s): M48.061 - SPINAL STENOSIS, LUMBAR REGION WITHOUT NEUROGENIC KIM SNOMED Code(s): 803921009 Plan: Plan: 1. After physical examination of the patient, reviewing imaging, and further discussion with the patient in regards to his symptoms we will currently planning continue conservative treatment in regards to his lumbar spine. He is experiencing acute low back pain was significant on the right with significant spasm over his right paraspinal muscles. He also experiences right lower extremity radiculopathy. CT imaging does show evidence of changes at his lumbar spine most significant at L3-4, L4-5, and L5-S1. This initially started on 07/18/2022 but have been severe since 07/21/2022. We did discuss he could be candidate for further treatment with pain management including possibility of injections. Consultation was previously placed with pain management. Patient states he would like to work to conservative treatment options with pain management. We also did discuss his abdominal pain was severe gastritis and possible gastric neoplasm. He has been seen and examined by gastroenterology scheduled for scope for visualization. He is currently nothing by mouth status after midnight with a clear liquid diet. We did discuss that given his abdominal pain and further evaluation, he should continue conservative treatment in regards to his lumbar spine. We plan have him follow-up in the outpatient setting for further evaluation. We did discuss of the symptoms do not improve in regards to his lumbar spine right lower extremity with further treatment with pain management, we could plan to obtain MRI imaging lumbar spine for further evaluation outpatient setting. His symptoms have been ongoing over the past 8 days. He is not experiencing any lower extremity weakness bilaterally. He does not have any left lower extremity radiculopathy. I do not currently feel his lumbar MRI imaging is emergent and would be okay to order in the outpatient setting. Patient does feel this is a good plan of care. 2. Patient currently waiting for evaluation with pain management. 3. Patient will continue to be seen and examined by gastroenterology and medicine I reviewed the case and review the imaging. The patient has a number of degenerative changes at his lumbar spine without acute instability. He is not having specific neurologic loss and I do not see a role for acute surgical intervention. I think that he can have some benefit with pain management and we will consult them as stated above. He is continuing his management for his GI issues as well.
[2022-07-26] MEDS: LIDOCAINE 5% PATCH TOPICAL SCH (15:10)
--- NOTE | 2022-07-26 15:49 | P.PAINPG ---
Objective - Vital Signs Vital signs: Vital Signs Temp 98.1 F 07/26/22 07:00 Pulse 65 07/26/22 07:00 Resp 18 07/26/22 07:00 BP 149/94 07/26/22 07:00 Pulse Ox 95 07/26/22 07:00 FiO2 Intake & Output 07/25/22 07/26/22 07/26/22 18:59 06:59 18:59 Intake Total 200 118 Balance 200 118 Weight 83.915 kg 83.915 kg Intake: Oral 200 118 Other: Voiding Method Toilet Toilet # Voids 1 - Labs CBC & Chem 7: 07/25/22 09:08 07/25/22 09:08 PQRS Measure Charge Sheet Comment: HISTORY OF PRESENT ILLNESS: 51 yr old inpatient male as a referral from Dr Pradhan presents today w severe and chronic LBP secondary to DDD, spondylosis and facet arthropathy without myelopathy for evaluation. Pt states pain level is provoked at 9 /10 in intensity, constant, localized in the R lower lumbar spine, sharp, burning in character w shooting pain towards the RLE. Pain is provoked by any movement. Pain is alleviated by medications, repositioning and rest. PMH: OA, GERD PSH: Denies SH: Daily tobacco user, Occasional ETOH use, Cannabis use FH: Mo- CHF/ CAD All: See list Meds: See list REVIEW OF ORGAN SYSTEMS: CONSTITUTIONAL: No fevers or chills. No recent weight loss. NEUROLOGICAL: + numbness and tingling along the distal extremities. No seizure disorders or headaches. MUSCULOSKELETAL: + pain PSYCHIATRIC: Denies current depression or suicidal thoughts. Physical Examinations : Constitutional : Cooperative , not in acute distress . Neurologic : Cranial nerve II to XII intact. No focal neurological deficits. Psychiatric : alert & oriented x 3. Matching mood & appropriate affect. Judgment & insight intact. Musculoskeletal : Cervical Spine Motor strength in the deltoid and biceps: Normal right side. Normal Left side Motor strength biceps and the wrist extensors: Normal right side . Normal left side Motor strength in the triceps muscle: Normal right side. Normal left side Deep tendon reflexes: Normal at the biceps. Normal at Brachioradialis. Normal at triceps Vertebral body tenderness to deep palpation over Cervical facet loading test: positive bilaterally Spurling test: positive bilaterally Neck distraction test: positive bilaterally Federico sign: positive bilaterally Lumbar spine Motor strength lower extremities ,thigh and legs 5/5 Right side , 5/5 Left side Deep tendon reflexes : Normal Knee Jerk. Normal Ankle Jerk Vertebral body tenderness over L4 Ku Test positive Lumbar facet Loading Test: positive Right / positive Left Range of motion of the lumbar spine Flexion 30 degrees, extension 10 degrees Straight Leg Raise test: Left/ Right positive at 30 degrees Aristides test: positive right / positive left. Severe tenderness over the Sacroiliac joint on the Right / Left sides Gaenslen test: positive bilaterally Seated flexion test: positive bilaterally. Sacral spine : Severe tenderness over the Sacroiliac joint: right side / left side Range of motion: Flexion of the lumbar spine <60 degrees Range of motion: Extension of the lumbar spine <20 degrees Gaenslen's Test positive Yinka's Test positive Aristides test: positive right side / left side Thigh Thrust Test Sacral Thrust Test Imaging: CT noncontrast lumbar spine from 07/25/22 reviewed Assessment/ Plan : Lumbar DDD Recommendation of medication mgmt and KRISTIN L4-L5 #1. May need a series of injections, up to 3 within a 6 mo period, for optimal pain relief. Risks, benefits of procedure discussed and patient verbalized understanding. Admits to aspirin or anti- coagulant use or medical history of diabetes. Protocol for discontinuation/ continuation of medications milagro procedure discussed. Minimal anesthesia provided, if clinically indicated, consisting of Versed and Fentanyl. All questions answered. I have spent greater than 30 minutes on patient care today. Dr Steward was available by phone for the evaluation of this patient. The time was used to review the medical records including relevant urine studies and Prescription history (MAPs), review of the available imaging, evaluation and examination of the patient, coordination of care with the medical staff and if applicable referring physicians, as well as creation of the medical record - Pain Location Lower Back Non-Pharmacological Interventions: Position/Reposition PQRS Narrative: Blood Pressure [Left Arm 149/94 Supine] Blood Pressure 147/95 Pain Intensity [Lower Back] 7 Pain Intensity 8 Pain Scale Used Numeric (1 - 10) Scale Used Numeric (1 - 10) Controlled Substance Measures - Controlled Substance Measures Is patient prescribed a controlled substance at discharge?: No
--- NOTE | 2022-07-26 16:48 | P.PN ---
Subjective Progress Note Date: 07/26/22 51 year Male came complaints of severe low back pain patient was seen in ER patient was subsequently sent home on [id number] ibuprofen and Tylenol. Patient any to have this pain. Patient denied any recent trauma. Patient was given salmeterol as well. Patient came back again with severe back pain, lack of bowel movements for about 3 days, severe epigastric abdominal pain along with nausea. Patient had a CT of the abdomen and pelvis along with the CT of the lumbar spine which showed severe gastritis with possible mass in the stomach along with severe degenerative to lower lumbar spine disease. Patient was Complaining of tingling numbness in both feet. Patient denied any weakness. Patient is being admitted for severe gastritis and severe back pain and pain management. 07/26/2022 Patient is evaluated today reports significant lower back pain to the right with radiation into the pelvis and also down the entire right leg with numbness and tingling. Patient reports using a sledge hammer prior to the pain starting was given steroids from the hospital and sent home pain was not improving and patient came back in. Abdominal pelvis CT reveals gastritis for this reason unable to give steoids at this time. REVIEW OF SYSTEMS: CONSTITUTIONAL: No fever, no malaise, no fatigue. HEENT: No recent visual problems or hearing problems. Denied any sore throat. CARDIOVASCULAR: No chest pain, orthopnea, PND, no palpitations, no syncope. PULMONARY: No shortness of breath, no cough, no hemoptysis. GASTROINTESTINAL: No diarrhea, no nausea, no vomiting, no abdominal pain. NEUROLOGICAL: Reports numbness tingling into the right leg PHYSICAL EXAMINATION: GENERAL: The patient is alert and oriented x3, not in any acute distress. Well developed, well nourished. HEENT: Pupils are round and equally reacting to light. EOMI. No scleral icterus. No conjunctival pallor. Normocephalic, atraumatic. No pharyngeal erythema. No thyromegaly. CARDIOVASCULAR: S1 and S2 present. No murmurs, rubs, or gallops. PULMONARY: Chest is clear to auscultation, no wheezing or crackles. ABDOMEN: Soft, nontender, nondistended, normoactive bowel sounds. No palpable organomegaly. MUSCULOSKELETAL: Deferred due to severe back pain EXTREMITIES: No cyanosis, clubbing, or pedal edema. NEUROLOGICAL: Gross neurological examination did not reveal any focal deficits. limited mobility and ROM lower back. SKIN: No rashes. Assessment and plan -Epigastric abdominal pain secondary to severe gastritis due to nonsteroidal anti-inflammatory pain medications and steroids that patient was taking, patient is started on Protonix -mass like lesion on the stomach rule out gastric neoplasm -Severe intractible low back pain and right lumbar radiculopathy -Degenerative disc disease with spinal stenosis orthopedics recommending conservative management at this time and pain management services to evaluate patient. Continue with antisposmadics and lidoderm patch. -Chronic and ongoing nicotine use counseled on cessation. DVT prophylaxis: Lovenox GI prophylaxs: Protonix BID Full Code Patient to undergo EGD/Colonoscopy tomorrow with GI services for further evaluation of gastric lesion. Conservative management for lumbar back pain and pending evaluation by pain management services. The impression and plan of care has been dictated by Christina Olea Nurse Practitioner as directed. Dr. Chriss MD I have performed a history and physical examination and medical decision making of this patient, discussed the same with the dictator, and agree with the dictators assessment and plan as written, documented as a scribe. Based on total visit time, I have performed more than 50% of this visit. Objective - Vital Signs Vital signs: Vital Signs Temp 97.5 F L 07/26/22 13:58 Pulse 89 07/26/22 13:58 Resp 16 07/26/22 13:58 BP 126/89 07/26/22 13:58 Pulse Ox 97 07/26/22 13:58 FiO2 Intake & Output 07/25/22 07/26/22 07/26/22 18:59 06:59 18:59 Intake Total 200 118 Balance 200 118 Weight 83.915 kg 83.915 kg Intake: Oral 200 118 Other: Voiding Method Toilet Toilet # Voids 1 - Labs CBC & Chem 7: 07/25/22 09:08 07/25/22 09:08 Assessment and Plan Time with Patient: Less than 30
[2022-07-27 06:30] LABS: ALT 24 U/L (4-49); AST 21 U/L (17-59); African American GFR (CKD) >90 (>60 ml/min/1.73 sqM); Albumin 4.2 g/dL (3.5-5.0); Albumin/Globulin Ratio 1.4; Alkaline Phosphatase 65 U/L (38-126); Anion Gap 11 mmol/L; Blood Urea Nitrogen 21 mg/dL (9-20); Calcium 9.2 mg/dL (8.4-10.2); Carbon Dioxide 23 mmol/L (22-30); Chloride 102 mmol/L (98-107); Globulin 2.9 g/dL; Glucose 94 mg/dL (74-99); Non-African American GFR(CKD) >90 (>60 ml/min/1.73 sqM); Potassium 4.5 mmol/L (3.5-5.1); Sodium 136 mmol/L (137-145); Total Bilirubin 2.3 mg/dL (0.2-1.3); Total Protein 7.1 g/dL (6.3-8.2)
[2022-07-27] MEDS: HYDROmorphone 1 MG/ML 1 ML SYRINGE IVP PRN (06:30)
[2022-07-27] MEDS: PANTOPRAZOLE 40 MG/10 ML VIAL IVP SCH ×2 (08:32→20:33)
[2022-07-27] MEDS: LIDOCAINE 5% PATCH TOPICAL SCH (08:32)
--- NOTE | 2022-07-27 08:41 | US ---
EXAMINATION TYPE: US gallbladder DATE OF EXAM: 07/27/2022 COMPARISON: NONE CLINICAL INDICATION: Male, 51 years old with history of hyperbilirubinemia, abdominal pain; Pain TECHNIQUE: Multiple sonographic images of the right upper quadrant are obtained. FINDINGS: EXAM MEASUREMENTS: Liver Length: 15.7 cm Gallbladder Wall: 0.1 cm CBD: 0.4 cm Right Kidney: 11.1 x 4.5 x 6.0 cm ARTIFICIAL FLY TIER NOTES: Pancreas: Obscured by bowel gas Liver: wnl Gallbladder: wnl Evidence for sonographic West's sign: No CBD: wnl Right Kidney: Anechoic lesion lower pole= 4.0 x 2.6 x 3.1 cm IMPRESSION: Simple cyst lower pole right kidney.
[2022-07-27] MEDS ORDERED: IOPAMIDOL M200 10 ML VIAL ONE (09:11)
[2022-07-27] MEDS ORDERED: methylPREDNISolone ACETATE 80 MG/ML 1 ML VIAL ONE (09:11)
--- NOTE | 2022-07-27 09:22 | P.PCN ---
Date of Procedure: 07/27/22 Procedure(s) Performed: PREOPERATIVE DIAGNOSIS: 1- Lumbar Degenerative Disc Diseases 2-Lumbar spondylosis with Facet arthropathy without myelopathy. 3-lumbar spinal stenosis POSTOPERATIVE DIAGNOSIS: 1-lumbar degenerative disc disease. 2-lumbar spondylosis with facet arthropathy without myelopathy. 3-lumbar spinal stenosis. PROCEDURE 1. Lumbar epidural steroid injection under fluoroscopic guidance at the L4-5 level. (Fluoroscopy imaging was available in radiology department) 2. Lumbar epidurogram. ANESTHESIA: Local anesthesia with lidocaine 1% 3 mL only. EBL: Minimal PROCEDURE INDICATION: The patient with low back pain and radiculitis symptoms unresponsive to conservative treatment. Fluoroscopy was used to optimize visualization of the needle placement and to maximize safety. PROCEDURE DESCRIPTION / TECHNIQUE: The patient was seen and identified in the preoperative area. Risks, benefits, complications including but not limited to infections ,bleeding ,allergic reaction to the medications ,nerve damage and not complete pain releife , and alternatives were discussed with the patient. The patient agreed to proceed with the procedure and signed the consent. IV was started, and vital signs were stable. Patient was taken to the OR and time out was completed. The patient was placed in the prone position on procedure table and a pillow was placed under the abdomen to reduce lumbar lordosis. The lumbosacral area was prepped and draped in the usual sterile fashion.ere closely monitored during the procedure. Vital signs was monitered during the entire procedure. Using anterior-posterior fluoroscopy, the L4-5 interlaminar space was identified and the skin over this site was marked and then infiltrated with 1% lidocaine subcutaneously. Subsequently, a 20-gauge Tuohy epidural needle was inserted and advanced toward the epidural space using the ``Loss of resistance technique and guided by AP and lateral fluoroscopy. The correct needle position in the epidural space was verified with the injection of 2 mL of the water soluble contrast dye Isovue 200 contrast and observing an excellent epidurogram with the epidural spread of the dye, after negative aspiration for blood and CSF and in the absence of paresthesias. Again after negative aspiration, a 6 ml mixture containing 80 mg of Depo-medrol ( Preservetive Free ), and 2 ml of preservative free Normal Saline, and 2 ml of preservative free lidocaine 1% solution was injected and a washout of epidurogram was seen. Needle was withdrawn intact, skin was cleansed, and bandages were applied. COMPLICATIONS: None DISPOSITION / PLANS: The patient was placed in a supine position and transferred to the recovery area in a stable condition for observation. There was no evidence of lower extremity motor or sensory deficit after the procedure. Patient was discharged from the recovery room after meeting discharge criteria. Home discharge instructions were given to the patient by the staff. The patient was reexamined prior to discharge. The patient will schedule a follow up in the clinic in 2-4 weeks.
--- NOTE | 2022-07-27 09:31 | FL ---
Fluoroscopy History: JOHANN WILLS
--- NOTE | 2022-07-27 11:42 | P.PN ---
Subjective Progress Note Date: 07/27/22 51 year Male came complaints of severe low back pain patient was seen in ER patient was subsequently sent home on [id number] ibuprofen and Tylenol. Patient any to have this pain. Patient denied any recent trauma. Patient was given salmeterol as well. Patient came back again with severe back pain, lack of bowel movements for about 3 days, severe epigastric abdominal pain along with nausea. Patient had a CT of the abdomen and pelvis along with the CT of the lumbar spine which showed severe gastritis with possible mass in the stomach along with severe degenerative to lower lumbar spine disease. Patient was Complaining of tingling numbness in both feet. Patient denied any weakness. Patient is being admitted for severe gastritis and severe back pain and pain management. 07/26/2022 Patient is evaluated today reports significant lower back pain to the right with radiation into the pelvis and also down the entire right leg with numbness and tingling. Patient reports using a sledge hammer prior to the pain starting was given steroids from the hospital and sent home pain was not improving and patient came back in. Abdominal pelvis CT reveals gastritis for this reason unable to give steoids at this time. 07/27/2022 Patient is evaluated today resting in bed. Continues with significant groin pain on the right side. There is no palpable mass or bulge to suggest inguinal hernia. Pain is likely deferred from the lumbar injury. 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 He does state the pain radiating to the right leg is improving. Unable to tolerate bowel prep yesterday and scope has been pushed to tomorrow. Currently attempting the bowel prep again today. Total bilirubin is 2.3 today, patient had gallbladder ultrasound showing simple cyst lower pole right kidney. Liver, gallbladder and CBD are within normal limits. REVIEW OF SYSTEMS: CONSTITUTIONAL: No fever, no malaise, no fatigue. HEENT: No recent visual problems or hearing problems. Denied any sore throat. CARDIOVASCULAR: No chest pain, orthopnea, PND, no palpitations, no syncope. PULMONARY: No shortness of breath, no cough, no hemoptysis. GASTROINTESTINAL: No diarrhea, no nausea, no vomiting, no abdominal pain. NEUROLOGICAL: Reports numbness tingling into the right leg, right lumbar pain and right groin pain. PHYSICAL EXAMINATION: GENERAL: The patient is alert and oriented x3, not in any acute distress. Well developed, well nourished. HEENT: Pupils are round and equally reacting to light. EOMI. No scleral icterus. No conjunctival pallor. Normocephalic, atraumatic. No pharyngeal erythema. No thyromegaly. CARDIOVASCULAR: S1 and S2 present. No murmurs, rubs, or gallops. PULMONARY: Chest is clear to auscultation, no wheezing or crackles. ABDOMEN: Soft, nontender, nondistended, normoactive bowel sounds. No palpable organomegaly. MUSCULOSKELETAL: Deferred due to severe back pain EXTREMITIES: No cyanosis, clubbing, or pedal edema. NEUROLOGICAL: Gross neurological examination did not reveal any focal deficits. limited mobility and ROM lower back. SKIN: No rashes. Assessment and plan -Epigastric abdominal pain secondary to severe gastritis due to nonsteroidal anti-inflammatory pain medications and steroids that patient was taking, patient is started on Protonix, abdominal pain has improved. -mass like lesion on the stomach rule out gastric neoplasm -Severe intractible low back pain and right lumbar radiculopathy s/p epidural injection -Degenerative disc disease with spinal stenosis orthopedics recommending conservative management at this time and pain management services to evaluate patient. -Chronic and ongoing nicotine use counseled on cessation. DVT prophylaxis: Lovenox GI prophylaxs: Protonix BID Full Code Patient to undergo EGD/Colonoscopy tomorrow with GI services for further evaluation of gastric lesion. Conservative management for lumbar back pain patient had epidural steroid injection and unable to use oral steroids or NSAID due to the gastritis. Lidoderm patch will be discontinued and recommend voltaren gel. The impression and plan of care has been dictated by Christina Olea, Nurse Practitioner as directed. Dr. Chriss MD I have performed a history and physical examination and medical decision making of this patient, discussed the same with the dictator, and agree with the dictators assessment and plan as written, documented as a scribe. Based on total visit time, I have performed more than 50% of this visit. Objective - Vital Signs Vital signs: Vital Signs Temp 98.2 F 07/27/22 07:00 Pulse 71 07/27/22 07:00 Resp 16 07/27/22 07:00 BP 123/84 07/27/22 07:00 Pulse Ox 96 07/27/22 07:00 FiO2 Intake & Output 0607/27/22 07/27/22 18:59 06:59 18:59 Intake Total 298 Balance 298 Intake: Oral 298 Other: Voiding Method Toilet Toilet Toilet # Voids 3 # Bowel Movements 1 - Labs CBC & Chem 7: 07/25/22 09:08 07/27/22 05:37 Labs: Abnormal Lab Results - Last 24 Hours (Table) 07/27/22 Range/Units 05:37 Sodium 136 L (137-145) mmol/L BUN 21 H (9-20) mg/dL Total Bilirubin 2.3 H (0.2-1.3) mg/dL Assessment and Plan Time with Patient: Less than 30
[2022-07-27] MEDS: HYDROmorphone 0.5 MG/0.5 ML SYRINGE IVP PRN ×2 (12:08→20:33)
[2022-07-27] MEDS: DICLOFENAC SODIUM GEL 100 GM TUBE TOPICAL SCH ×3 (12:09→20:37)
--- NOTE | 2022-07-27 12:56 | P.PN ---
Subjective Progress Note Date: 07/27/22 Principal diagnosis: Abdominal pain This a 51-year-old male who presented to the emergency department with complaints of right lower abdominal, suprapubic pain radiating down into groin and leg and wrapping around his right flank. 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 Since then it has progressively gotten worse, and over the weekend he presented to the emergency department and was prescribed prednisone and pain medication. He continues to have pain, no nausea or vomiting and pres ented back to the emergency department. He states he does have a decreased appetite, he is unsure of any weight loss however his feels that he has had unintentional weight loss over the last 6-7 months. He also reports no bowel movement for the last 5 days. He denies any previous colonoscopy or upper endoscopy. No previous history of peptic ulcer disease, GERD. Consultation placed for abnormal CT, possible neoplasm. He had a CT of the abdomen and pelvis as part of his workup in the emergency department reporting moderate gastric fold thickening along the fundus and body. Findings may reflect gastritis however the more focal mural based thickening measuring 1.9 cm at the posterior gastric antrum. Prominent fold versus ulcer mound or mucosal lesion/neoplasm heart differential considerations. In addition there is a 2.7 cm long segment of moderate annular thickening and narrowing at the mid sigmoid colon, possible focal peristalsis based on clinical suspicion of underlying neoplasm, recommend short interval follow-up CT to reassess area or direct visualization. Prominent fluid-filled small bowel loops in lower abdomen could represent a mild regional ileus or enteritis. Prostatomegaly of 5.0 centimeter wide with some heterogeneous enhancement small focus of enhancement within the left paramedian prostate gland. Correlate with PSA values. Labs WBC 10.0 hemoglobin 18.7 hematocrit 53 platelet count 232,000 sodium 137 potassium 4.3 BUN 18 creatinine 0.7 glucose 107 total bilirubin 1.9 AST 27 ALT 25 alkaline phosphatase 67 07/27/2022: Patient was seen and examined today as a follow-up. He continues to have lower abdominal pain mostly in the inguinal region and around his back. He was seen by orthopedics yesterday who recommended pain management consultation. Patient was scheduled for EGD colonoscopy today for abnormal CT of the abdomen and pelvis however patient states that he was not able to drink the prep yesterday he was nauseated and vomited. He denies any hematemesis, had a bowel movement yesterday evening. No fevers or chills. He's been afebrile. Objective - Vital Signs Vital signs: Vital Signs Temp 98.2 F 07/27/22 07:00 Pulse 71 07/27/22 07:00 Resp 16 07/27/22 07:00 BP 123/84 07/27/22 07:00 Pulse Ox 96 07/27/22 07:00 FiO2 Intake & Output 07/26/22 07/27/22 07/27/22 18:59 06:59 18:59 Intake Total 298 Balance 298 Intake: Oral 298 Other: Voiding Method Toilet Toilet # Voids 3 # Bowel Movements 1 - Exam General appearance: The patient is alert, oriented, appears in no acute distress. HET: Head is normocephalic and atraumatic. Conjunctiva pink. Sclera anicteric. Neck: Supple without lymphadenopathy. Abdomen: Soft, right lower quadrant tenderness with palpation and flank tenderness on the right, nondistended with bowel sounds. No guarding or rigidity. Extremities: Normal skin color and turgor. No pedal edema Skin: No rashes, no jaundice Neurological: No focal deficits. Alert and oriented. - Labs CBC & Chem 7: 07/25/22 09:08 07/27/22 05:37 Labs: Abnormal Lab Results - Last 24 Hours (Table) 07/27/22 Range/Units 05:37 Sodium 136 L (137-145) mmol/L BUN 21 H (9-20) mg/dL Total Bilirubin 2.3 H (0.2-1.3) mg/dL Assessment and Plan (1) Abdominal pain Narrative/Plan: 51-year-old male who presented to the emergency department with low right abdominal pain radiating down his leg and around into his flank region. Patient had been crushing concrete and feels that likely pain was related to that. Pain progressively got worse where he was able to barely move. He had a CT of the abdomen and pelvis showed thickening of gastric fold along the fundus and body may reflect gastritis, however there was a focal area measuring 1.9 cm in the posterior gastric antrum prominent fold versus ulcer mound or mucosal lesion neoplasm her differentials. There was also concern for area of thickening and narrowing at the mid sigmoid colon. Although pain does seem likely related to musculoskeletal, due to the abnormal findings of CT of the abdomen and pelvis need to consider other etiologies. Recommend proceeding with EGD and colonoscopy. Patient agreeable. Current Visit: Yes Status: Acute Code(s): R10.9 - UNSPECIFIED ABDOMINAL PAIN SNOMED Code(s): 22034805 (2) Acute low back pain Narrative/Plan: Orthopedics and pain management following Current Visit: Yes Status: Acute Code(s): M54.50 - LOW BACK PAIN, UNSPECIFIED SNOMED Code(s): 049699945 (3) DDD (degenerative disc disease), lumbosacral Current Visit: Yes Status: Acute Code(s): M51.37 - OTHER INTERVERTEBRAL DISC DEGENERATION, LUMBOSACRAL REGION SNOMED Code(s): 71299748 (4) Foraminal stenosis of lumbar region Current Visit: Yes Status: Acute Code(s): M48.061 - SPINAL STENOSIS, LUMBAR REGION WITHOUT NEUROGENIC KIM SNOMED Code(s): 849863139 (5) Gastric wall thickening Current Visit: Yes Status: Acute Code(s): K31.89 - OTHER DISEASES OF STOMACH AND DUODENUM SNOMED Code(s): 48050945 Plan: 1. Continue symptomatic and supportive care 2. Clear liquid diet, nothing by mouth after midnight 3. Bowel prep throughout the day 4. Protonix 40 mg daily for GI prophylaxis 5. Plan for EGD colonoscopy tomorrow 6. Rest of medical management deferred to primary medical team Thank you for this consultation, we will continue to follow. Dr. Javier Saxena I agree with the dictator's note, documented as a scribe by Angelic Gray.
--- NOTE | 2022-07-27 12:58 | P.CONS ---
History of Present Illness - Reason for Consult Consult date: 07/26/22 Abdominal pain, possible neoplasm Requesting physician: Kathy Hollingsworth - Chief Complaint Right lower abdominal pain and back pain - History of Present Illness This a 51-year-old male who presented to the emergency department with complaints of right lower abdominal, suprapubic pain radiating down into groin and leg and wrapping around his right flank. 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 Since then it has progressively gotten worse, and over the weekend he presented to the emergency department and was prescribed prednisone and pain medication. He continues to have pain, no nausea or vomiting and presented back to the emergency department. He states he does have a decreased appetite, he is unsure of any weight loss however his feels that he has had unintentional weight loss over the last 6-7 months. He also reports no bowel movement for the last 5 days. He denies any previous colonoscopy or upper endoscopy. No previous history of peptic ulcer disease, GERD. Consultation placed for abnormal CT, possible neoplasm. He had a CT of the abdomen and pelvis as part of his workup in the emergency department reporting moderate gastric fold thickening along the fundus and body. Findings may reflect gastritis however the more focal mural based thickening measuring 1.9 cm at the posterior gastric antrum. Prominent fold versus ulcer mound or mucosal lesion/neoplasm heart differential considerations. In addition there is a 2.7 cm long segment of moderate annular thickening and narrowing at the mid sigmoid colon, possible focal peristalsis based on clinical suspicion of underlying neoplasm, recommend short interval follow-up CT to reassess area or direct visualization. Prominent fluid-filled small bowel loops in lower abdomen could represent a mild regional ileus or enteritis. Prostatomegaly of 5.0 centimeter wide with some heterogeneous enhancement small focus of enhancement within the left paramedian prostate gland. Correlate with PSA values. Labs WBC 10.0 hemoglobin 18.7 hematocrit 53 platelet count 232,000 sodium 137 potassium 4.3 BUN 18 creatinine 0.7 glucose 107 total bilirubin 1.9 AST 27 ALT 25 alkaline phosphatase 67 Review of Systems REVIEW OF SYSTEMS: CARDIOPULMONARY: No chest pain or shortness of breath. Gastrointestinal: Right lower abdominal pain and flank pain. No nausea or vomiting. No hematemesis, coffee-ground emesis. No rectal bleeding, or melena. GENITOURINARY: No dysuria or hematuria. MUSCULOSKELETAL: Decreased range of motion. Pain in the patient's lower back right groin and down his right leg. SKIN: No rashes. No jaundice. ENDOCRINE: No chills, fevers. No excessive weight gain or loss. No polydipsia or polyuria. PSYCHIATRIC: Unremarkable. NEUROLOGY: No change in mental status. Denies dizziness, headache. ENT: Vision unremarkable. CONSTITUTIONAL: Reports possible weight loss over last few months.. No fever, chills, night sweats. Past Medical History Additional Past Medical History / Comment(s): chronic back pain, History of Any Multi-Drug Resistant Organisms: None Reported Past Surgical History: No Surgical Hx Reported Past Psychological History: No Psychological Hx Reported Smoking Status: Current every day smoker Past Alcohol Use History: Occasional Past Drug Use History: Marijuana - Past Family History Mother Family Medical History: Congestive Heart Failure (CHF), Coronary Artery Disease (CAD) Medications and Allergies Allergies Allergy/AdvReac Type Severity Reaction Status Date / Time No Known Allergies Allergy Verified 07/25/22 12:35 Physical Exam Vitals: Vital Signs Temp Pulse Pulse Resp BP BP Pulse Ox 07/26/22 07:00 98.1 F 65 18 149/94 95 07/26/22 02:00 97.7 F 64 17 160/90 96 07/25/22 20:55 18 07/25/22 20:46 97.8 F 70 18 138/92 96 07/25/22 18:37 97.8 F 69 18 147/95 95 07/25/22 13:00 98 F 67 18 154/99 98 Intake and Output 07/25/22 07/26/22 07/26/22 22:59 06:59 14:59 Intake Total 200 118 Balance 200 118 Intake: Oral 200 118 Other: Voiding Method Toilet Toilet # Voids 1 Weight 83.915 kg General appearance: The patient is alert, oriented, appears in no acute distress. HET: Head is normocephalic and atraumatic. Conjunctiva pink. Sclera anicteric. Neck: Supple without lymphadenopathy. Trachea midline. Heart: S1 S2. Regular rate and rhythm. Lungs: Clear to auscultation. Abdomen: Soft, right lower quadrant tenderness with palpation and right flank t enderness. Upper abdominal tenderness mostly in the epigastric region. Nondistended with bowel sounds. No guarding or rigidity. Skin: No rashes. No jaundice. Extremities: Normal skin color and turgor. No pedal edema. Neurological: No focal deficits. Alert and oriented x3. Results CBC & Chem 7: 07/25/22 09:08 07/27/22 05:37 Labs: Abnormal Lab Results - Last 24 Hours (Table) 07/25/22 07/25/22 07/25/22 Range/Units 09:08 09:08 09:08 RBC 6.16 H (4.30-5.90) m/uL Hgb 18.7 H (13.0-17.5) gm/dL Hct 53.8 H (39.0-53.0) % Carbon Dioxide 20 L (22-30) mmol/L Glucose 104 H (74-99) mg/dL Total Bilirubin 1.9 H (0.2-1.3) mg/dL Ur Specific [place] 1.046 H (1.001-1.035) Urine Protein Trace H (Negative) Urine Ketones 1+ H (Negative) Assessment and Plan (1) Abdominal pain Narrative/Plan: 51-year-old male who presented to the emergency department with low right abdominal pain radiating down his leg and around into his flank region. Patient had been crushing concrete and feels that likely pain was related to that. Pain progressively got worse where he was able to barely move. He had a CT of the abdomen and pelvis showed thickening of gastric fold along the fundus and body may reflect gastritis, however there was a focal area measuring 1.9 cm in the posterior gastric antrum prominent fold versus ulcer mound or mucosal lesion neoplasm her differentials. There was also concern for area of thickening and narrowing at the mid sigmoid colon. Although pain does seem likely related to musculoskeletal, due to the abnormal findings of CT of the abdomen and pelvis need to consider other etiologies. Recommend proceeding with EGD and colonoscopy. Patient agreeable. Current Visit: Yes Status: Acute Code(s): R10.9 - UNSPECIFIED ABDOMINAL PAIN SNOMED Code(s): 93939292 (2) Acute low back pain Narrative/Plan: Orthopedics and pain management following Current Visit: Yes Status: Acute Code(s): M54.50 - LOW BACK PAIN, UNSPECIFIED SNOMED Code(s): 002356628 (3) DDD (degenerative disc disease), lumbosacral Current Visit: Yes Status: Acute Code(s): M51.37 - OTHER INTERVERTEBRAL DISC DEGENERATION, LUMBOSACRAL REGION SNOMED Code(s): 79869095 (4) Foraminal stenosis of lumbar region Current Visit: Yes Status: Acute Code(s): M48.061 - SPINAL STENOSIS, LUMBAR REGION WITHOUT NEUROGENIC KIM SNOMED Code(s): 720528478 (5) Gastric wall thickening Current Visit: Yes Status: Acute Code(s): K31.89 - OTHER DISEASES OF STOMACH AND DUODENUM SNOMED Code(s): 97495912 (6) Lumbar back pain with radiculopathy affecting right lower extremity Current Visit: Yes Status: Acute Code(s): M54.16 - RADICULOPATHY, LUMBAR REGION SNOMED Code(s): 293413584 Plan: 1. Continue symptomatic and supportive care 2. Clear liquid diet, nothing by mouth after midnight 3. Bowel prep throughout the day 4. Protonix 40 mg daily for GI prophylaxis 5. Plan for EGD colonoscopy tomorrow 6. Rest of medical management deferred to primary medical team Thank you for this consultation, we will continue to follow. Dr. Javier Saxena I agree with the dictator's note, documented as a scribe by Angelic Gray.
[2022-07-27] MEDS: oxyCODONE-APAP 7.5-325MG 1 EACH TAB PO PRN (13:42)
[2022-07-28] MEDS: HYDROmorphone 0.5 MG/0.5 ML SYRINGE IVP PRN (06:34)
[2022-07-28] MEDS: DICLOFENAC SODIUM GEL 100 GM TUBE TOPICAL SCH ×2 (07:56→14:20)
[2022-07-28] MEDS: PANTOPRAZOLE 40 MG/10 ML VIAL IVP SCH (07:56)
[2022-07-28 08:17] VITALS: RESP 18
[2022-07-28] MEDS ORDERED: LACTATED RINGERS 1,000 ML IV ONE (10:56)
[2022-07-28] MEDS ORDERED: LIDOCAINE 2% INJ 20 MG/ML (2 ML VIAL) ONE (10:56)
[2022-07-28] MEDS ORDERED: PROPOFOL 10 MG/ML 20 ML VIAL IV ONE (10:56)
[2022-07-28] MEDS ORDERED: fentaNYL (PF) 50 MCG/ML 2 ML AMP ONE (10:56)
[2022-07-28] MEDS ORDERED: MIDAZOLAM 2 MG/2 ML VIAL ONE (10:56)
--- NOTE | 2022-07-28 11:28 | P.PCN ---
Date of Procedure: 07/28/22 Procedure(s) Performed: Brief history: Patient is a pleasant 51-year-old white male admitted hospital with abdominal pain radiating to the right lower quadrant as well as to the back for the last 2-3 days' duration. As a part of workup he had a CT of abdomen and pelvis done that revealed thickened gastric folds in the fundus of the stomach suspicious for ulcer and abnormal Imaging in the sigmoid colon. He is hence scheduled for upper endoscopy as well as colonoscopy to evaluate further. Procedure performed: Esophagogastroduodenoscopy with biopsy Colonoscopy with snare polypectomy Preoperative diagnosis: Abdominal pain and change in bowel habits Abnormal CAT scan of abdomen as mentioned above Anesthesia: MAC Procedure: After informed consent was obtained from the patient was brought into the endoscopy unit and IV sedation was administered by anesthesia under continuous monitoring. Initially upper endoscopy was done. The Olympus GF 160 video endoscope was inserted inserted into the mouth and esophagus intubated without any difficulty and was gradually advanced into the stomach and duodenum and carefully examined. The bulb and second part of the duodenum appeared normal. The scope was then withdrawn into the stomach adequately insufflated with air and upon careful examination the antrum and body, cardia and fundus appeared normal. First in the gastric body appeared slightly thickened but there were no ulcerations or erosions identified. Biopsies were done from this area. The scope was then withdrawn into the esophagus. The GE junction was located at 40 cm to the incisors. It appeared regular with no erythema erosions or ulcerations. Rest of the esophagus appeared normal. Patient tolerated the procedure well. At this time the patient continued to remain sedation. Initial digital rectal examination was normal. Olympus CF 160 video colonoscope was then inserted into the rectum and gradually advanced to the cecum without any difficulty. Careful examination was performed as the scope was gradually being withdrawn. The prep was excellent. The cecum, appeared normal. In the ascending colon there was a 2 mm sessile polyp removed by snare polypectomy. In the transverse colon there was a 7 mm polyp removed by snare polypectomy and in the descending colon there was a 5 mm polyp removed by snare polypectomy. Rest of the ascending colon, transverse colon, descending colon, sigmoid colon and rectum appeared normal. Retroflexion was performed in the rectum and small internal hemorrhoids were noted. Patient tolerated the procedure well. Impression: 1. Upper endoscopy revealed mild gastric fold thickening which was prominent in the body of the stomach is post multiple biopsies 2. Colonoscopy revealed 8 mm ascending colon polyp, 7 mm transverse colon polyp and a 5 mm descending colon polyp all of which were removed by snare polypectomy. Small internal hemorrhoids Recommendations: Findings of this examination were discussed with the patient . He was advised to follow with the biopsy results. Diet will be advanced as tolerated. If the biopsy is adenoma he can have a repeat colonoscopy in 3 years.
[2022-07-28 14:56] LABS: ALT 24 U/L (4-49); AST 21 U/L (17-59); African American GFR (CKD) >90 (>60 ml/min/1.73 sqM); Albumin 4.2 g/dL (3.5-5.0); Albumin/Globulin Ratio 1.5; Alkaline Phosphatase 53 U/L (38-126); Anion Gap 10 mmol/L; Bilirubin,Unconjugated 1.7 mg/dL (0.0-1.1); Blood Urea Nitrogen 28 mg/dL (9-20); Carbon Dioxide 21 mmol/L (22-30); Chloride 105 mmol/L (98-107); Globulin 2.8 g/dL; Glucose 121 mg/dL (74-99); Non-African American GFR(CKD) >90 (>60 ml/min/1.73 sqM); Potassium 4.1 mmol/L (3.5-5.1); Sodium 136 mmol/L (137-145); Total Bilirubin 1.8 mg/dL (0.2-1.3)
[2022-07-28 15:55] VITALS: BP 145/87; PULSE 72; TEMP 98
--- NOTE | 2022-07-30 14:53 | P.DS ---
Providers Date of admission: 07/26/22 16:48 Attending physician: Chelo Banerjee Consults: 07/25/22 11:09 Consult Physician Urgent Consulting Provider: Nicki Pradhan Consult Reason/Comments: Intractable back pain, possible abutment at right L4 nerve root Do you want consulting provider notified?: Yes Consult Physician Urgent Consulting Provider: Franca Saxena Consult Reason/Comments: Abdominal pain, possible neoplasm in stomach and sigmoid colon Do you want consulting provider notified?: Yes 07/25/22 11:51 Consult Physician Routine Consulting Provider: Rita Steward Consult Reason/Comments: Back pain Do you want consulting provider notified?: Yes Primary care physician: Selvin [facility] Course: Final Diagnosisi -Epigastric abdominal pain secondary to severe gastritis due to nonsteroidal anti-inflammatory pain medications and steroids that patient was taking, patient is started on Protonix, abdominal pain has improved. -mass like lesion on the stomach rule out gastric neoplasm s/p EGD colonoscopy with polypectomy and biopsies -Severe intractible low back pain and right lumbar radiculopathy s/p epidural injection -Degenerative disc disease with spinal stenosis orthopedics recommending conservative management at this time and pain management services evaluated patient. -Prostatomegaly on CT imaging with 5.0 cm wide with heterogenous enhancement correlate with PSA value, recommend outpatient urology consultation -Chronic and ongoing nicotine use counseled on cessation. Full Code Discharge Disposition Patient stable for discharge home with close follow-up with GI services, anesthesiology, orthopedics and recommended to see a urologist on discharge. Patient to follow-up with GI services for his biopsy results of the upper and lower endoscopy. Continue on omeprazole twice a day for the gastritis. Patient recommended to continue off steroids at this time. Repeat bilirubin level one week and follow-up with his primary care provider in one to 2 days. Hospital Course This is a 51 year Male came complaints of severe low back pain patient was seen in ER patient was subsequently sent home on [id number] ibuprofen and Tylenol. Patient was also given steroid taper. The back pain started after patient had been using sledge hammer and patient continued with mostly right lower back pain radiating into the right groin and down entire right leg. Patient came back again with severe back pain, lack of bowel movements for about 3 days, severe epigastric abdominal pain along with nausea. Patient had a CT of the abdomen and pelvis along with the CT of the lumbar spine which showed severe gastritis with possible mass in the stomach along with severe degenerative to lower lumbar spine disease. Patient was Complaining of tingling numbness in slava th feet. Patient denied any weakness. Patient is being admitted for severe gastritis and severe back pain and pain management. Patient was evaluated by orthopedics recommending conservative management at this time and patient received an epidural steroid injection with pain management services. Taken for endoscopy which reveals mild gastric thickening prominent in the body of the stomach post multiple biopsies colonoscopy revealed an 8 mm descending colon polyp, 7 mm transverse colon polyp and a 5 mm ascending colon polyp which was removed by snare polypectomy and a small internal hemorrhoid. Patient was advised to follow-up for the biopsy results advance diet as tolerated. Repeat colonoscopy in 3 years if the biopsy is adenoma. There was prostatomegaly with 5.00 cm Heterogenous enhancement correlate with PSA values this was noted on the abdominal pelvis CT and patient is recommended to follow up with urology outpatient. Patient did have elevated bilirubin at 1.9, 2.3 and 1.8, the rest of the liver enzymes are normal, troponin is negative, CRP is negative, kidney function is stable and normal, sodium was 136. Urinalysis was negative for infection. Patient has remained afebrile and on room air. No chest pain, shortness of breath, no nausea vomiting or diarrhea. His abdominal pain has improved as well as the lower back pain. Patient will be discharged home, his lungs are clear, S1-S2 auscultated. Neurological exam is negative. Please see medication reconciliation for list of current medication. Thank you for allowing us to participate in the care of this patient. The impression and plan of care has been dictated by Christina Olea, Nurse Practitioner as directed. Dr. Chriss MD I have performed a history and physical examination and medical decision making of this patient, discussed the same with the dictator, and agree with the dictators assessment and plan as written, documented as a scribe. Based on total visit time, I have performed more than 50% of this visit. Patient Condition at Discharge: Stable Plan - Discharge Summary Discharge Rx Participant: No New Discharge Prescriptions: New oxyCODONE-APAP 7.5-325MG [Percocet 7.5-325 mg] 1 each PO Q4HR PRN 4 Days #16 tab PRN Reason: Pain Omeprazole [PriLOSEC] 20 mg PO AC-BRKFST #15 cap Cyclobenzaprine [Flexeril] 5 mg PO TID PRN #15 tab PRN Reason: Spasms Diclofenac Sodium Gel [Voltaren Gel] 4 gm TOPICAL QID gm Discontinued HYDROcodone/APAP 5-325MG [[place] 5-325] 1 tab PO Q4HR PRN 3 Days #18 tab PRN Reason: Pain Discharge Medication List Cyclobenzaprine [Flexeril] 5 mg PO TID PRN #15 tab 07/28/22 [Rx] Diclofenac Sodium Gel [Voltaren Gel] 4 gm TOPICAL QID gm 07/28/22 [Rx] Omeprazole [PriLOSEC] 20 mg PO AC-BRKFST #15 cap 07/28/22 [Rx] oxyCODONE-APAP 7.5-325MG [Percocet 7.5-325 mg] 1 each PO Q4HR PRN 4 Days #16 tab 07/28/22 [Rx] Follow up Appointment(s)/Referral(s): Scot Street MD [STAFF PHYSICIAN] - 1 Week Chepe House PAC [PHYSICIAN DIRECTOR BUSINESS DEVELOPMENT] - 08/21/22 10:30 am (Patient may follow-up with Chepe House PA-C or Dr. Keven Pradhan at [facility] in 3 weeks following discharge. ) Franca Saxena MD [STAFF PHYSICIAN] - 2 Weeks (Follow up on bx results and hyperbilirubinemia) Rita Steward MD [STAFF PHYSICIAN] - 1 Week Selvin Atkins MD [Primary Care Provider] - 1-2 days Ambulatory/Diagnostic Orders: Total Bilirubin [LAB.AMB] Time Frame: 1 Week, Location: None Selected Patient Instructions/Handouts: Epidural Steroid Injection (DC) Activity/Diet/Wound Care/Special Instructions: Recommend to follow up with urology on discharge for routine prostate screening and PSA level check. The abdominal CT reveals enlarged prostate. Dr. Street office number has been provided you can follow up with any at the office. Follow up with anesthesia services on discharge Follow up with Dr. Javier Saxena for biopsy results in 2 weeks Discharge Disposition: HOME SELF-CARE
== END 2022-07-28 16:48 | disposition home or self-care (01) ==
LOC: EC 08:09 → 6NMEDSUR 12:47 → 1SOBS 21:19 → 6NMEDSUR 07-26 13:54 → INTOOBSV 07-26 16:48 → OBSVTOIN 07-26 16:48 → UNDODISOB 07-28 16:48
PROVIDERS: ADMIT Internal Medicine; ATTEND Internal Medicine
DX: M48.061 Spinal stenosis, lumbar region without neurogenic claudication (principal); M51.16 Intervertebral disc disorders with radiculopathy, lumbar region; M47.26 Other spondylosis with radiculopathy, lumbar region; K29.50 Unspecified chronic gastritis without bleeding; B96.81 Helicobacter pylori [H. pylori] as the cause of diseases classified elsewhere; D12.2 Benign neoplasm of ascending colon; D12.4 Benign neoplasm of descending colon; D12.3 Benign neoplasm of transverse colon; K64.8 Other hemorrhoids; K21.9 Gastro-esophageal reflux disease without esophagitis; F17.200 Nicotine dependence, unspecified, uncomplicated; Z79.899 Other long term (current) drug therapy
CPT/HCPCS: 96372; 96376 ×4; 96374; 96375; 99285; 36415; 88305; 80053 ×3; 82248; 83605; 84484; 85025; 86140; 81003; 88342; 76705; 72132; 74177; 62323; 45385; 43239; G0378 ×6; J2250; J1040; J2360; J1650; J3010; J1170 ×7; J1885; J2704; C9113 ×4; Q9966; Q9967; J2001

== ENCOUNTER → 2022-08-23 | Outpatient (CLI) | payer BC ==
--- NOTE | 2022-08-23 14:54 | P.PAINPG ---
PQRS Measure Charge Sheet Comment: 51 yr old inpatient male w at side presents today w severe and chronic LBP secondary to DDD, spondylosis and facet arthropathy without myelopathy for evaluation s/p KRISTIN L4-L5. Pt states he experienced 75 % pain relief x 4 wks s/p procedure. Pt states pain level is provoked at 6 /10 in intensity, constant, localized in the R lower lumbar spine, sharp, sharp in character w shooting pain towards the R groin and RLE. Pain is provoked by any movement. Pain is alleviated by medications, heat, repositioning and rest. Interventional procedures include KRISTIN L4-L5 x1 Medications include [place] REVIEW OF ORGAN SYSTEMS: CONSTITUTIONAL: No fevers or chills. No recent weight loss. NEUROLOGICAL: + numbness and tingling along the distal extremities. No seizure disorders or headaches. MUSCULOSKELETAL: + pain PSYCHIATRIC: Denies current depression or suicidal thoughts. Physical Examinations : Constitutional : Cooperative , not in acute distress . Neurologic : Cranial nerve II to XII intact. No focal neurological deficits. Psychiatric : alert & oriented x 3. Matching mood & appropriate affect. Judgment & insight intact. Musculoskeletal : Cervical Spine Motor strength in the deltoid and biceps: Normal right side. Normal Left side Motor strength biceps and the wrist extensors: Normal right side . Normal left side Motor strength in the triceps muscle: Normal right side. Normal left side Deep tendon reflexes: Normal at the biceps. Normal at Brachioradialis. Normal at triceps Vertebral body tenderness to deep palpation over Cervical facet loading test: positive bilaterally Spurling test: positive bilaterally Neck distraction test: positive bilaterally Federico sign: positive bilaterally Lumbar spine Motor strength lower extremities ,thigh and legs 5/5 Right side , 5/5 Left side Deep tendon reflexes : Normal Knee Jerk. Normal Ankle Jerk Vertebral body tenderness over L4 Ku Test positive Lumbar facet Loading Test: positive Right / positive Left Range of motion of the lumbar spine Flexion 30 degrees, extension 10 degrees Straight Leg Raise test: Left/ Right positive at 30 degrees Aristides test: positive right / positive left. Severe tenderness over the Sacroiliac joint on the Right / Left sides Gaenslen test: positive bilaterally Seated flexion test: positive bilaterally. Sacral spine : Severe tenderness over the Sacroiliac joint: right side / left side Range of motion: Flexion of the lumbar spine <60 degrees Range of motion: Extension of the lumbar spine <20 degrees Gaenslen's Test positive Yinka's Test positive Aristides test: positive right side / left side Thigh Thrust Test Sacral Thrust Test Imaging: CT noncontrast lumbar spine from 07/25/22 reviewed Assessment/ Plan : Lumbar DDD Recommendation of PT x 6 wks re: M51.36. All questions answered. I have spent greater than 30 minutes on patient care today. Dr Steward was a vailable by phone for the evaluation of this patient. The time was used to review the medical records including relevant urine studies and Prescription history (MAPs), review of the available imaging, evaluation and examination of the patient, coordination of care with the medical staff and if applicable referring physicians, as well as creation of the medical record Home Medications: Ambulatory Orders Cyclobenzaprine [Flexeril] 5 mg PO TID PRN #15 tab 07/28/22 Diclofenac Sodium Gel [Voltaren Gel] 4 gm TOPICAL QID gm 07/28/22 Omeprazole [PriLOSEC] 20 mg PO AC-BRKFST #15 cap 07/28/22 oxyCODONE-APAP 7.5-325MG [Percocet 7.5-325 mg] 1 each PO Q4HR PRN 4 Days #16 tab 07/28/22 Controlled Substance Measures - Controlled Substance Measures Is patient prescribed a controlled substance at discharge?: No
[2022-08-23 15:15] VITALS: BP 114/78; PULSE 77; RESP 18
== END ==
LOC: PNWHC3 12:15
PROVIDERS: ATTEND Specialist
DX: M51.36 Other intervertebral disc degeneration, lumbar region (principal); M47.816 Spondylosis without myelopathy or radiculopathy, lumbar region
CPT/HCPCS: 99211